=== PATIENT | female | born 1955 | race Caucasian/White ===

== ENCOUNTER 2020-08-23 09:48 | Emergency (ER) | payer MEDICARE ==
[~2020-08-23] VITALS: Ht 162.6 cm; Wt 59.0 kg
[2020-08-23] MEDS ORDERED: LOSA1TAB36 PO (09:58)
--- NOTE | 2020-08-23 10:01 | NUR ---
PATIENT CAME IN COMPLAINING OF ABCESS UNDER RIGHT ARM. AND SHE STATES SHE MIGHT BE HAVING A UTI.
[2020-08-23] MEDS ORDERED: LIDOCAINE HCL 2% 20 ML VIAL TP ONE (10:15)
[2020-08-23] MEDS ORDERED: LET TOPICAL SOLUTION 8 ML UDC TP ONE (10:15)
[2020-08-23] MEDS ORDERED: SODIUM BICARBONATE 4.2 % (NEUT) 5 ML VIAL TP ONE (10:15)
[2020-08-23] MEDS ORDERED: NEOMY/BACITRA/POLYMYXIN B OINT UD PACKET TP ONE ×2 (10:15→10:27)
[2020-08-23] MEDS ORDERED: LET TOPICAL SOLUTION 8 ML UDC ONE (10:16)
[2020-08-23 10:19] LABS: *BILIRUBIN,URIN NEGATIVE (NEGATIVE); *BLOOD, URINE 3+ (NEGATIVE); *CLARITY,URINE CLOUDY (CLEAR); *COLOR,URINE YELLOW (YELLOW); *KETONES,URINE NEGATIVE (NEGATIVE); *UROBILINOGEN,URINE 0.2 E.U./dl (NORMAL); LEUKOCYTE ESTERASE ,URINE 2+ (NEGATIVE); NITRITE, URINE NEGATIVE (NEGATIVE); PH,URINE 5.5 (5.0-8.0); UGLUCOSE NEGATIVE (NEGATIVE)
--- NOTE | 2020-08-23 10:37 | NUR ---
DR PEREZ AT BEDS[facility]
--- NOTE | 2020-08-23 11:07 | NUR ---
GIVEN PATIENT DISCHARGE INSTRUCTIONS AND SIGNED DISCHARGE
[2020-08-23 12:16] LABS: BACTERIA,URINE MANY /HPF (NONE SEEN); RBC,URINE 20-50 /HPF (0-3); SQUAMOUS EPITHELIAL CELL,UR MODERATE /HPF (NONE SEEN); WBC,URINE TNTC /HPF (0-3)
== END 2020-08-23 11:15 | disposition home or self-care (01) ==
LOC: ER 09:48
DX: L02.411 Cutaneous abscess of right axilla (principal); N39.0 Urinary tract infection, site not specified; I10 Essential (primary) hypertension
CPT/HCPCS: 87077; 87086; A4663; J3490